=== PATIENT | female | born 1995 | race Caucasian/White ===

== ENCOUNTER → 2016-09-06 | Outpatient (CLI) | payer BC, OTHER ==
[~2016-09-06] MED LIST: MIRT1TAB27 PO; PRENTAB26 PO
== END | disposition home or self-care (01) ==
LOC: C.LABSPEC 15:35
PROVIDERS: ATTEND Obstetrics & Gynecology
DX: Z34.83 Encounter for supervision of other normal pregnancy, third trimester (principal)

== ENCOUNTER 2016-09-13 13:02 | Outpatient (CLI) | payer BC, OTHER ==
[~2016-09-13] VITALS: Ht 172.7 cm; Wt 77.3 kg
[2016-09-13 13:40] VITALS: Ht 172.7 cm; Wt 77.3 kg
== END 2016-09-13 15:42 | disposition home or self-care (01) ==
LOC: C.OPB 13:02 → C.LD 13:11 → C.OPB 15:42
PROVIDERS: ATTEND Obstetrics & Gynecology
DX: O62.9 Abnormality of forces of labor, unspecified (principal); Z3A.37 37 weeks gestation of pregnancy

== ENCOUNTER 2016-09-24 14:02 | Inpatient (IN) | payer BC, OTHER ==
[~2016-09-24] VITALS: Ht 172.7 cm; Wt 80.0 kg
[2016-09-24] MEDS ORDERED: LACTATED RINGER'S 1000ML 1,000 ML IV PRN (14:21)
[2016-09-24] MEDS ORDERED: LACTATED RINGER'S 1000ML 1,000 ML IV SCH (14:21)
[2016-09-24] MEDS ORDERED: LACTATED RINGER'S 1000ML 500 ML IV PRN ×2 (14:21→23:49)
[2016-09-24] MEDS ORDERED: OXYTOCIN 30 UNITS/500ML NSS IV PRN (14:30)
[2016-09-24 14:49] LABS: HEMATOCRIT 33.8 % (37-47); MEAN CELL VOLUME 88.3 fL (80-100); MEAN CORPUSCULAR HEMOGLOBIN 31.3 pg (25-34); MEAN CORPUSCULAR HGB CONC 35.5 g/dl (32-36); MEAN PLATELET VOLUME 11.7 fL (7.4-10.4); PLATELET COUNT 174 K/uL (130-400); RED BLOOD COUNT 3.83 M/uL (4.2-5.4); WHITE BLOOD COUNT 11.88 K/uL (4.8-10.8)
[2016-09-24 15:16] VITALS: Ht 172.7 cm; Wt 80.0 kg
[2016-09-24] MEDS ORDERED: EpHEDrine SULFATE INJ 50 MG/ML AMP ONE (22:46)
[2016-09-24] MEDS ORDERED: BUPIVACAINE 0.25% 30 ML VIAL ONE (22:46)
[2016-09-24] MEDS ORDERED: FENTANYL 2MCG/ML ROPIV 1.25MG/ML 100ML BAG EPI ONE (22:46)
[2016-09-24] MEDS ORDERED: FENTANYL CITRATE INJ 50 MCG/1 ML 2 ML VIAL ONE (22:46)
[2016-09-24] MEDS ORDERED: NALOXONE HCL INJ 1 MG in SODIUM CHLORIDE 0.9% 1000ML 1,000 ML IV PRN (23:49)
[2016-09-25] MEDS ORDERED: ONDANSETRON INJ 2 MG/ML 2 ML VIAL IV PRN
[2016-09-25] MEDS ORDERED: DiphenhydrAMINE HCL 50 MG/ML VIAL IV PRN
[2016-09-25] MEDS ORDERED: EpHEDrine SULFATE INJ 50 MG/ML AMP IV PRN
[2016-09-25] MEDS ORDERED: NALOXONE HCL INJ 0.4 MG/1 ML VIAL/CARP IV PRN
[2016-09-25] MEDS ORDERED: NALBUPHINE HCL INJ 10 MG/ML AMP IV PRN
[2016-09-25] MEDS ORDERED: FENTANYL 2MCG/ML ROPIV 1.25MG/ML 100ML BAG EPI PRN
[2016-09-25] MEDS ORDERED: LACTATED RINGER'S 1000ML 1,000 ML IV SCH (00:11)
[2016-09-25] MEDS ORDERED: SUPERCREAM 0.870 % 15GM JAR EXT PRN (00:15)
[2016-09-25] MEDS ORDERED: ACETAMINOPHEN 325 MG TAB PO PRN (00:15)
[2016-09-25] MEDS ORDERED: HYDROCORTISONE ACETATE 25 MG SUPP PR PRN (00:15)
[2016-09-25] MEDS ORDERED: OXYTOCIN 30 UNITS/500ML NSS IV PRN (00:15)
[2016-09-25] MEDS ORDERED: BENZOCAINE 20% AER SPR 82.5 GM CAN EXT PRN (00:15)
[2016-09-25] MEDS ORDERED: ACETAMINOPHEN/CODEINE 300/30MG TAB PO PRN ×2 (00:15)
[2016-09-25] MEDS ORDERED: DIPHTHERIA/TETANUS/PERTUSSIS 0.5 ML SYR/VIAL IM. ONE (00:15)
[2016-09-25] MEDS ORDERED: LANOLIN OINT EXT PRN ×2 (00:15)
[2016-09-25 02:30] VITALS: BP 123/77; PULSE 118; TEMP 36.7
[2016-09-25 03:30] VITALS: BP 125/74; PULSE 88; TEMP 36.9
--- NOTE | 2016-09-25 07:10 | DELIVERY SUMMARY ---
DATE OF OPERATION: 09/25/2016 PREOPERATIVE DIAGNOSES: 1. [place] intrauterine at full term. 2. Spontaneous rupture of membranes. 3. Group B strep negative. POSTOPERATIVE DIAGNOSES: Same. PROCEDURE: Spontaneous vaginal delivery. SURGEON: Dr. Lozano. MAINTENANCE SPECIALIST: None. ESTIMATED BLOOD LOSS: 400 cc. PLACENTA: Spontaneous and intact with a 3-vessel cord. COMPLICATIONS: None. DISPOSITION: Stable in labor and delivery. DESCRIPTION: Janine is a 20-year-old para 1 who presented with a at full term with which she experienced rupture of membranes for clear fluid followed by onset of minimally painful contractions. She presented to labor and delivery, found to have reassuring heart tones, but no significant change from prior cervical exam. Therefore Pitocin was started for induction. She was ultimately provided with an epidural for pain management. Shortly after provision of epidural the patient began noticing increased pressure with an urge to push. She was found to be completely dilated. I was called and prepped the patient for delivery and over the first push she delivered the head of the infant completely followed by the shoulders with no difficulty whatsoever and in fact without active maternal pushing effort. The infant was placed on the maternal abdomen. The cord was doubly clamped and cut by the father of the baby. The was noted to make respiratory efforts and moving all four extremities equally and immediately upon delivery. The placenta was delivered spontaneously. It was noted to be intact with a 3-vessel cord. There was a marginal versus velamentous insertion and the placenta was noted to be extremely compact and fixed with a somewhat small diameter and a somewhat greater than usual thickness. This was expected based on ultrasounds and the placenta will be sent for examination. There were no lacerations of the cervix, vagina or perineum requiring repair. At the present time the patient's fundus is firm, lochia is minimal and the mother and infant are in stable condition having tolerated delivery well. I attest to the content of the Intraoperative Record and any orders documented therein. Any exceptio ns are noted below.
[2016-09-25 07:30] VITALS: BP 109/68; PULSE 73; TEMP 36.6
[2016-09-25] MEDS: DOCUSATE SODIUM 100 MG CAP PO SCH ×2 (08:19→19:37)
[2016-09-25] MEDS: PRENATAL VITAMIN TAB PO SCH (08:19)
[2016-09-25] MEDS: IBUPROFEN 600 MG TAB PO PRN ×2 (11:12→19:04)
--- NOTE | 2016-09-25 11:12 | Anesthesia Procedure Note ---
Anesthesia Epidural Removal Nt Date & Time Sep 25, 2016 at 11:12 Vital Signs Pain Intensity: 2.0 Vital Signs Past 12 Hours Date Time Temp Pulse Resp B/P Pulse Ox O2 Delivery O2 Flow Rate FiO2 09/25/16 07:30 36.6 73 16 109/68 Room Air 09/25/16 03:30 36.9 88 18 125/74 Room Air 09/25/16 02:30 Room Air 09/25/16 02:30 36.7 118 18 123/77 Room Air Notes Mental Status: alert / awake / arousable, participated in evaluation Nausea / Vomiting: adequately controlled Pain: adequately controlled Airway Patency, RR, SpO2: stable & adequate BP & HR: stable & adequate Hydration State: stable & adequate Neuraxial Anesthesia: was administered Anesthetic Complications: no major complications apparent, pt satisfied with anesthetic care Epidural: removed without complications, with tip intact
[2016-09-25 12:27] VITALS: BP 133/80; PULSE 83; TEMP 36.9; O2SAT 20
[2016-09-25 15:45] VITALS: BP 113/68; PULSE 94; TEMP 36.7
[2016-09-25 19:45] VITALS: BP 121/69; PULSE 88; TEMP 36.7
[2016-09-26 00:50] VITALS: BP 98/59; PULSE 84; TEMP 36.9
[2016-09-26 06:32] LABS: HEMATOCRIT 30.1 % (37-47)
--- NOTE | 2016-09-26 06:38 | Progress Note ---
Subjective Sep 26, 2016. Subjective conversation w/ patient, physical exam Ambulation: ambulating normally Voiding: no voiding problems Passing Gas: Yes Diet Tolerance: Regular Diet Lochia: Small Feeding Type: Breast Feeding Review of Systems Constitutional: No chills, No fever Respiratory: No cough, No shortness of breath Cardiac: No chest pain, No palpitations Objective Vital Signs Date Time Temp Pulse Resp B/P Pulse Ox O2 Delivery O2 Flow Rate FiO2 09/26/16 00:50 36.9 84 16 98/59 Room Air 09/26/16 00:50 Room Air 09/25/16 19:45 36.7 88 20 121/69 Room Air 09/25/16 15:45 Room Air 09/25/16 15:45 36.7 94 20 113/68 Room Air 09/25/16 12:27 36.9 83 20 133/80 20 09/25/16 07:30 36.6 73 16 109/68 Room Air Physical Exam General Appearance: WELL-APPEARING, NO APPARENT DISTRESS Respiratory/Chest: lungs clear, no respiratory distress Cardiovascular: regular rate, rhythm, no murmur Abdomen: non tender, soft Fundus: Firm, Non-Tender, Relation to Umbilicus (2 cm below) Extremities: non-tender, no calf tenderness Laboratory Results Last 24 Hours Test 09/26/16 06:03 Hemoglobin 10.3 g/dL Hematocrit 30.1 % Assessment and Plan Problem List Medical Problems: (1) Anxiety State Nos Status: Chronic (2) Depression Status: Chronic (3) First trimester Status: Acute (4) Subchorionic hematoma in first trimester Status: Acute Post- Day#: 1 Continue Routine Care: s/p Day 1 - vital signs reviewed and wnl - Hgb 10.3 today - Blood: O+, GBS-, Rubella immune - Encourage ambulation, encourage , monitor lochia - Patient doing well clinically - Patient counselled on discharge instructions - PATIENT TO BE DISCHARGED TODAY Resident Physician Supervision Note: I interviewed and examined the patient. Discussed with Dr. Mcfarland and agree with findings and plan as documented in the note. Any exceptions or clarifications are listed here: [None] Documented By: Awais Forrester
--- NOTE | 2016-09-26 06:40 | Discharge Instructions ---
Discharge Instructions Date of Service Sep 26, 2016. Admission Reason for Admission: PROM Discharge Discharge Diagnosis / Problem: Spontaneous Vaginal Delivery Discharge Goals Goal(s): Routine recovery after delivery Medications Continue Dispensed Medications: supercream, dermaplast, tucks Activity Recommendations Activity Limitations: per Instructions/Follow-up section . Instructions / Follow-Up Instructions / Follow-Up ACTIVITY RECOMMENDATIONS: * Gradual return to full activity over the next 2-3 weeks. * No lifting - nothing heavier than baby over the next 2-3 weeks. * Do not engage in vigorous exercise, sexual activity or sports until cleared by your physician. * Do not drive or operate any motorized equipment until cleared by your physician. * You may shower/bathe daily. MEDICATIONS: For discomfort or pain, you may use Acetaminophen (Tylenol), Ibuprofen (Advil), or Naproxen (Aleve) following the package directions. For constipation you may use Colace following the package directions. BREAST CARE: If you are not breast feeding: * Wear a supportive bra 24 hours a day for one to two weeks. * Avoid stimulating your breasts and nipples as much as possible during the first few weeks after delivery. * When taking a shower, have the warm water hit your back, not breasts. * When your breasts feel full, apply ice packs. Usually three to four times a day helps ease the discomfort. * Take a mild pain medication (Tylenol / Motrin) when you are uncomfortable. If breast feeding: * Use breast milk to lubricate nipples. Lansinoh cream may be used for sore nipples. You do not need to remove cream prior to breast feeding. If using a different brand of cream, check the label for directions regarding removal of cream prior to nursing. * Wear a supportive bra. * If having problems with breasts or breast feeding, call a planning consultant or your health care provider. EPISIOTOMY CARE: After delivery, if you have an episiotomy (stitches), the following steps will ease discomfort and aid healing. * For the first 24 hours after delivery, place ice packs next to your episiotomy to help reduce swelling. * After the first 24 hour-period, sitz baths, either portable or in the tub, are suggested. A shower with a shower arm sprayed over the episiotomy may be comforting. * Isis care should be done after each voiding and bowel movement. Squirt warm water from a plastic bottle over the perineum (region of the body between the anus and urinary opening) and pat dry. * Use Dermoplast to ease discomfort. Shake container. [place] directly over the episiotomy. Place a Tucks on a clean sanitary pad next to your episiotomy. SPECIAL CARE INSTRUCTIONS: When you are discharged from the hospital, it is important for you to follow the instructions listed below: * During the first week at home, you should be able to care for yourself and your baby. In addition, the usual light household activities are encouraged. * Limit your activities to the way you feel. Do not try to clean the house or move furniture. Be sensible. * If you actively engage in sports and have done so up until the time of your delivery, you may resume these activities as soon as you feel able. This may take up to one month or even longer. Use good judgment. * Continue to take your vitamins for at least six weeks after the of your baby. * Your diet need not be limited unless you were on a special diet before your delivery. Breast-feeding mothers need around 2500 calories per day and at least 64-80 ounces of fluid per day (8 to 10 glasses). * You should eat foods from the four major food groups. Crash diets or fad diets are to be avoided. Eating lean meats, fresh fruits and vegetables, low-fat dairy products, high fiber foods and a regular exercise program, will help you get back to your pre- weight without putting your health at risk. * Constipation is sometimes a problem after delivery. Take a mild laxative as needed. If breast feeding, Milk of Magnesia is acceptable to use. You may use a suppository or Fleets enema if no episiotomy. * A daily shower or tub bath is suggested. Be sure to thoroughly and gently dry the perineum. * A bloody vaginal discharge will usually continue until around four weeks post . A small amount of bleeding may continue for as long as six weeks. Vaginal discharge changes from the bright red bleeding after delivery to pink then brownish and finally yellowish-pink before becoming white and disappearing. * Bleeding may increase with activity. Your first period may come in 4-8 weeks. If you are breast feeding, your period may be delayed even longer. * [place] (sex) can begin whenever both you and your partner feel comfortable and do not have any form of genital infection. It is recommended that you wait at least six weeks for internal and external healing to occur. If you have questions, please talk to your health care practitioner. A condom should be used to prevent infection and . * Foreplay, gentle intercourse and lubrication is very important the first several times to prevent pain. A water-based lubricant such as K-Y jelly or Astroglide may be used. * If you have RH negative blood and your baby is RH positive, you will receive RHOGAM by injection prior to discharge. The nurse will give you a card to keep with you that has the date and place that you received RHOGAM after delivery. * During your care, you had a Rubella screen done to check for the presence of rubella antibodies in your blood. If your test was negative, you will receive a Rubella vaccine prior to discharge. This vaccine may cause a fever, soreness at the injection site and flu-like symptoms. If these symptoms persist, notify your health care practitioner. is not advised for one month after a Rubella vaccine. * Verbalizes understanding of car seat law as reviewed with patient nursing. * Car Seat hand-out given and reviewed with patient by nursing. * Shaken baby information reviewed with patient by nursing. Call you doctor if: * Heavy bleeding (saturating several pads an hour) or passing clots the size of your fist. * A fever >101 degrees F (38.3 degrees C) on two occasions four hours apart and /or chills. * Unusual pain in the pelvic or vaginal areas. * "Baby Blues" lasting longer than two weeks. If you have any questions or concerns, call your health care practitioner at . FOLLOW UP VISIT: * Please call the office at to schedule a 6 week examination. It is important you keep this appointment. It is important for you to make arrangements for either yearly or twice yearly check-ups thereafter. Current Hospital Diet Patient's current hospital diet: Regular OB Diet Discharge Diet Recommended Diet: Regular Diet Pending Studies Studies pending at discharge: no Medical Emergencies . Who to Call and When: Medical Emergencies: If at any time you feel your situation is an emergency, please call 911 immediately. . Non-Emergent Contact Non-Emergency issues call your: Primary Care Provider, Visual Display Manager . . "Provider Documentation" section prepared by Olman Mcfarland. VTE Core Measure Inpt VTE Proph given/why not?: Treatment not indicated
[2016-09-26 07:40] VITALS: BP 119/77; PULSE 83; TEMP 36.7; O2SAT 99
[2016-09-26 07:58] VITALS: BP 119/77; PULSE 83; TEMP 36.7; O2SAT 99
[2016-09-26] MEDS: PRENATAL VITAMIN TAB PO SCH (08:16)
[2016-09-26] MEDS: DOCUSATE SODIUM 100 MG CAP PO SCH (08:16)
[2016-09-26 08:22] VITALS: O2SAT 99
== END 2016-09-26 10:35 | disposition home or self-care (01) | DRG 774 ==
LOC: C.OPB 14:02 → C.LD 14:02 → C.OPB 14:23 → C.LD 14:24 → C.OBG 09-25 02:36 → EDSTATUS 10-01 14:04
PROVIDERS: ADMIT Obstetrics & Gynecology; ATTEND Obstetrics & Gynecology
PROC: 10E0XZZ Delivery of Products of Conception, External Approach (ICD-10-PCS; principal; 2016-09-25)
PROC: 3E033VJ Introduction of Other Hormone into Peripheral Vein, Percutaneous Approach (ICD-10-PCS; principal; 2016-09-25)
DX: O42.02 Full-term premature rupture of membranes, onset of labor within 24 hours of rupture (principal); O99.42 Diseases of the circulatory system complicating childbirth; I87.1 Compression of vein; O43.893 Other placental disorders, third trimester; O43.123 Velamentous insertion of umbilical cord, third trimester; O99.344 Other mental disorders complicating childbirth; F41.9 Anxiety disorder, unspecified; Z37.0 Single live birth; Z3A.38 38 weeks gestation of pregnancy; Z95.828 Presence of other vascular implants and grafts; Z87.891 Personal history of nicotine dependence

== ENCOUNTER → 2016-11-14 | Outpatient (CLI) | payer BC, OTHER ==
[2016-11-18 11:51] LABS: CHLAMYDIA TRACH RNA*** NOT DETECTED (NOT DETECTED); GC (NEIS GONORRHOEAE)RNA** NOT DETECTED (NOT DETECTED)
== END | disposition home or self-care (01) ==
LOC: C.LABSPEC 11:16
PROVIDERS: ATTEND Obstetrics & Gynecology
DX: Z39.2 Encounter for routine postpartum follow-up (principal)

== ENCOUNTER → 2016-12-20 | Outpatient (CLI) | payer BC, OTHER ==
[2016-12-23 15:43] LABS: CHLAMYDIA TRACH RNA*** NOT DETECTED (NOT DETECTED); GC (NEIS GONORRHOEAE)RNA** NOT DETECTED (NOT DETECTED)
== END | disposition home or self-care (01) ==
LOC: C.LABSPEC 14:38
PROVIDERS: ATTEND Physician Assistant
DX: Z30.430 Encounter for insertion of intrauterine contraceptive device (principal)

== ENCOUNTER → 2016-12-20 | Outpatient (CLI) | payer BC, OTHER ==
[2016-12-20 09:56] LABS: PREG INTERNAL NEGATIVE QC NEG CLEAR BACKGROUND; PREG INTERNAL POSITIVE QC POS CONTROL LINE
== END | disposition home or self-care (01) ==
LOC: C.LAB1850 09:14
PROVIDERS: ATTEND Physician Assistant
DX: Z01.818 Encounter for other preprocedural examination (principal); Z30.9 Encounter for contraceptive management, unspecified